=== PATIENT | male | born 2000 | race Caucasian/White ===

== ENCOUNTER 2018-04-02 13:10 | Emergency (ER) | payer MEDICAID ==
[~2018-04-02] VITALS: Ht 175.3 cm; Wt 63.0 kg
[2018-04-02 13:19] VITALS: BP 115/66
== END 2018-04-02 14:35 | disposition home or self-care (01) ==
LOC: ED 14:29
DX: S63.522A Sprain of radiocarpal joint of left wrist, initial encounter (principal); M25.841 Other specified joint disorders, right hand; W51.XXXA Accidental striking against or bumped into by another person, initial encounter; Y93.89 Activity, other specified; Y92.009 Unspecified place in unspecified non-institutional (private) residence as the place of occurrence of the external cause; Y99.8 Other external cause status
CPT/HCPCS: 29125; 99283